=== PATIENT | male | born 1995 | race Caucasian/White ===

== ENCOUNTER 2017-01-15 17:25 | Emergency (ER) | payer OTHER ==
--- NOTE | 2017-01-15 18:23 | Emergency Department Record ---
History of Present Illness - General Chief Complaint: Cough Stated Complaint: COUGH Time Seen by Provider: 01/15/17 18:20 Source: Patient Mode of Arrival: Ambulatory Limitations: No limitations - History of Present Illness Initial Comments: The patient is here due to a cough and congestion with intermittent sputum production for 2 weeks. He denies any fever but has felt warm. He also denies any SOB or SATINDER but has had nausea at the end of a coughing spell at times. MD Complaint: Cough, Nasal congestion, Rhinorrhea Onset/Timin -: Week(s) - Related Data Home Medications Medication Instructions Recorded Confirmed Last Taken Clindamycin HCl [Cleocin HCl] 150 mg PO DAILY 01/15/17 01/15/17 01/15/17 Diazepam [Valium] 5 mg PO Q8H 01/15/17 01/15/17 01/15/17 Hydrocodone/Acetaminophen 1 tab PO Q6H PRN 01/15/17 01/15/17 01/15/17 [Hydrocodone/Acetaminophen 5mg/325mg] Ibuprofen [Motrin] 800 mg PO Q8H PRN 01/15/17 01/15/17 01/15/17 Ondansetron [Zofran Odt] 4 mg PO Q8H 01/15/17 01/15/17 01/15/17 Oxycodone HCl/Acetaminophen 1 - 2 tab PO Q6HR PRN 01/15/17 01/15/17 01/14/17 [Percocet 5mg/325mg] Previous Rx's Medication Instructions Recorded Albuterol Sulfate [Proair Hfa] 2 puff IH QID PRN #1 inhaler 01/15/17 Doxycycline Monohydrate [Mondoxyne 100 mg PO BID #14 capsule 01/15/17 ] Allergies Allergy/AdvReac Type Severity Reaction Status Date / Time amoxicillin trihydrate Allergy SWELLING Verified 01/15/17 18:25 [From Augmentin] (GENERAL) azithromycin [From Zithromax] Allergy SWELLING Verified 01/15/17 18:25 OF THE FACE cephalexin monohydrate Allergy SWELLING Verified 01/15/17 18:25 [From Keflex] OF THE FACE potassium clavulanate Allergy SWELLING Verified 01/15/17 18:25 [From Augmentin] (GENERAL) Travel Screening - Travel/Exposure Within Last 30 Days Have you traveled within the last 30 days?: No - Travel/Exposure Within Last Year Have you traveled outside the [place] in the last year?: No - Additonal Travel Details Have you been exposed to anyone with a communicable illness?: No - Travel Symptoms Symptom Screening: None Review of Systems Constitutional: Reports: Malaise. Denies: Chills, Fever Eyes: Denies: Eye discharge ENT: Reports: Congestion Respiratory: Reports: Cough. Denies: Dyspnea Cardiovascular: Denies: Arrhythmia, Chest pain Past Medical History - SOCIAL HISTORY Smoking Status: Never smoker Alcohol Use: Occassional Drug Use: None - RESPIRATORY Hx Respiratory Disorders: No - CARDIOVASCULAR Hx Cardio Disorders: No - NEURO Hx Neuro Disorders: Yes Comment:: grade 3 concussion/kirill injury - GI Hx GI Disorders: No - Hx Genitourinary Disorders: No - ENDOCRINE Hx Endocrine Disorders: No - MUSCULOSKELETAL Hx Musculoskeletal Disorders: No - PSYCH Hx Psych Problems: No - HEMATOLOGY/ONCOLOGY Hx Hematology/Oncology Disorders: No Family Medical History Any Significant Family History?: No Physical Exam - General General Appearance: Alert, Oriented x3, Cooperative, No acute distress - Head Head exam: Atraumatic, Normocephalic, Normal inspection - Eye Eye exam: Normal appearance, PERRL - ENT Throat exam: Tonsillar erythema. negative: Normal inspection, Tonsillomegaly, Tonsillar exudate, R peritonsillar mass, L peritonsillar mass - Neck Neck exam: Normal inspection, Full ROM. negative: Tenderness - Respiratory Respiratory exam: Normal lung sounds bilaterally. negative: Respiratory distress, Rhonchi, Stridor, Wheezes - Cardiovascular Cardiovascular Exam: Regular rate, Normal rhythm, Normal heart sounds - GI/Abdominal GI/Abdominal exam: Soft, Normal bowel sounds. negative: Tenderness - Neurological Neurological exam: Alert, Normal gait. negative: Abnormal gait, Motor sensory deficit - Psychiatric Psychiatric exam: negative: Anxious, Depressed Course Vital Signs 01/15/17 18:05 Temperature 98.6 F Pulse Rate 68 Respiratory 20 Rate Blood Pressure 105/61 Pulse Ox 96 - Reevaluation(s) Reevaluation #1: The patient is doing well. He denies any new issues. I did discuss the xray results and the plan to discharge the patient on an oral Abx and inhaller. 01/15/17 19:03 Medical Decision Making - Data Complexity MDM Data: X-Ray Ordered and/or Reviewed - Radiology Data Radiology results: Report reviewed (CXR: Neg) Disposition Disposition: Discharge Clinical Impression: Upper respiratory infection, acute Disposition: Home, Self-Care Condition: (1) Good Instructions: Upper Respiratory Infection (ED) Additional Instructions: Please take the Doxycycline and inhaller as directed for cough along with an OTC cough medicine. Please see your PCP for recheck next week if not better. Return to the ER for any increased cough, or any fever or trouble breathing. Prescriptions: Albuterol Sulfate [Proair Hfa] 2 puff IH QID PRN #1 inhaler PRN Reason: Cough And Difficulty Breathing Doxycycline Monohydrate [Mondoxyne Nl] 100 mg PO BID #14 capsule Forms: Patient Portal Access Time of Disposition: 19:05
--- NOTE | 2017-01-16 07:53 | RADIOLOGY REPORT ---
EXAM: CHEST, TWO VIEWS HISTORY: PATIENT HAS COUGH AND CHEST PAIN. TECHNIQUE: Two views of the chest were provided without comparison examinations. FINDINGS: The cardiomediastinal silhouette is within normal limits for size and contour. The dariel appear unremarkable. There is no radiographic evidence of a focal infiltrate, pleural effusion, or pneumothorax. IMPRESSION: NO RADIOGRAPHIC EVIDENCE OF AN ACUTE INTRATHORACIC PROCESS. JOB NUMBER: [id number] MTDD
== END 2017-01-15 19:29 | disposition home or self-care (01) ==
LOC: ER 17:25
DX: J06.9 Acute upper respiratory infection, unspecified (principal); R05 Cough
CPT/HCPCS: 71020; 99283

== ENCOUNTER 2017-05-10 14:27 | Emergency (ER) | payer BC, OTHER ==
--- NOTE | 2017-05-10 14:34 | Emergency Department Record ---
History of Present Illness - General Chief complaint: Rash Stated complaint: RASH Time Seen by Provider: 05/10/17 14:28 Source: Patient, Family Mode of Arrival: Ambulatory Limitations: No limitations - History of Present Illness Initial comments: 22 yo male presents with a rash. The rash has been present for about one month. The glutteal fold and cleft, perianal and scrotal area has been involved. No fevers. It itches and james at times. He runs and is frequently sweaty in that area. No difficulty with urination. MD complaint: Rash Hx Tetanus Toxoid Vaccination: Yes Year of Tetanus Vaccination: 2016 Location: Genitals Quality: Other (Itches) Consistency: Constant Improves with: None Worsens with: Other (sweating) Context: Other Associated symptoms: Denies other symptoms Treatments Prior to Arrival: Corticosteroid, OTC topical medication - Related Data Home Medications Medication Instructions Recorded Confirmed Last Taken Meloxicam 7.5 mg PO DAILY 05/10/17 05/10/17 Unknown Nortriptyline HCl [Pamelor] 10 mg PO DAILY 05/10/17 05/10/17 Unknown Previous Rx's Medication Instructions Recorded Clotrimazole 45 gm VG BID #1 cream.appl 05/10/17 Allergies Allergy/AdvReac Type Severity Reaction Status Date / Time amoxicillin trihydrate Allergy SWELLING Verified 05/10/17 14:33 [From Augmentin] (GENERAL) azithromycin [From Zithromax] Allergy SWELLING Verified 05/10/17 14:33 OF THE FACE cephalexin monohydrate Allergy SWELLING Verified 05/10/17 14:33 [From Keflex] OF THE FACE potassium clavulanate Allergy SWELLING Verified 05/10/17 14:33 [From Augmentin] (GENERAL) Review of Systems Constitutional: Denies: Chills, Fever, Malaise Eyes: Denies: Eye discharge, Eye pain, Photophobia ENT: Denies: Congestion, Throat pain Respiratory: Denies: Cough Cardiovascular: Denies: Chest pain, Syncope Endocrine: Denies: Fatigue Gastrointestinal: Denies: Abdominal pain, Diarrhea, Nausea, Vomiting Genitourinary: Denies: Dysuria, Frequency, Hematuria Musculoskeletal: Denies: Arthralgia, Back pain, Myalgia Skin: Reports: As per HPI, Change in color, Rash. Denies: Bruising Neurological: Denies: Headache Psychiatric: Denies: Anxiety Hematological/Lymphatic: Denies: Easy bleeding, Easy bruising, Swollen glands Past Medical History - SOCIAL HISTORY Smoking Status: Never smoker Drug Use: None - RESPIRATORY Hx Respiratory Disorders: No - CARDIOVASCULAR Hx Cardio Disorders: No - NEURO Hx Neuro Disorders: Yes Comment:: grade 3 concussion/kirill injury - GI Hx GI Disorders: No - Hx Genitourinary Disorders: No - ENDOCRINE Hx Endocrine Disorders: No - MUSCULOSKELETAL Hx Musculoskeletal Disorders: No - PSYCH Hx Psych Problems: No - HEMATOLOGY/ONCOLOGY Hx Hematology/Oncology Disorders: No Physical Exam - General General Appearance: Alert, Oriented x3, Cooperative, No acute distress Limitations: No limitations - Head Head exam: Normal inspection - Eye Eye exam: Normal appearance - ENT ENT exam: Normal exam Ear exam: Normal external inspection Nasal Exam: Normal inspection Mouth exam: Normal external inspection - Neck Neck exam: Normal inspection - GI/Abdominal GI/Abdominal exam: negative: Tenderness - Rectal Rectal exam: Other (Rash from the upper glutteal fold to the anus with some on the scrotal area as well. The rash is CW tinea). negative: Deferred, Normal inspection - exam: negative: Scrotal swelling (erythema) - Extremities Extremities exam: Normal inspection - Neurological Neurological exam: Alert, Normal gait, Oriented X3, Reflexes normal - Psychiatric Psychiatric exam: Normal affect, Normal mood - Skin Skin exam: Erythema. negative: Normal color Type of lesion: negative: Abscess Distribution of rash: Genitals (glutteal cleft, perianal, scrotal) Course - Reevaluation(s) Reevaluation #1: The rash is consistent with tinea. No signs of secondary infection or cellulitis 05/10/17 14:34 Disposition Disposition: Discharge Clinical Impression: Tinea cruris Disposition: Home, Self-Care Condition: (1) Good Instructions: Tinea Corporis (ED), Jock Itch (ED) Additional Instructions: Return if worse, pain, fever, pus or concerns Keep the area dry and clean Air out frequently and avoid moisture Prescriptions: Clotrimazole 45 gm VG BID #1 cream.appl Forms: Patient Portal Access Time of Disposition: 14:35 Quality - Quality Measures Quality Measures: N/A - Blood Pressure Screening Does Patient Have Any of the Following: No Blood Pressure Classification: Pre-Hypertensive BP Reading Systolic Measurement: 126 Diastolic Measurement: 76 Screening for High Blood Pressure: < Pre-Hypertensive BP, F/U Documented > [ [id number]] Pre-Hypertensive Follow-up Interventions: Referral to alternative/primary care provider.
== END 2017-05-10 15:02 | disposition home or self-care (01) ==
LOC: ER 14:27
DX: B35.6 Tinea cruris (principal)
CPT/HCPCS: 99282